=== PATIENT | female | born 1955 | race Caucasian/White ===

== ENCOUNTER 2020-02-27 15:21 | Emergency (ER) | payer BC, SELFPAY ==
[2020-02-27] MEDS ORDERED: Acetaminophen 500 MG TAB ONE (16:05)
--- NOTE | 2020-02-27 16:09 | CT ---
EXAM: CT face without contrast HISTORY: Trip and fall one hour ago landing on face with nasal pain COMPARISON: None TECHNIQUE: Multiple contiguous axial images were obtained and a CT of the face without contrast. Sagi ttal and coronal reformats were performed. FINDINGS: There are minimally displaced bilateral nasal bone fractures. No teeth remain in the maxill a. No other facial fractures are identified. Mild nasal soft tissue swelling is seen. The globes and retrobulbar soft tissues are unremarkable. The visualized paranasal sinuses are well aerated without evidence of opacification. The mastoid air cells are well aerated. Visualized intracranial structures are unremarkable. IMPRESSION: Minimally displaced nasal bone fractures.
--- NOTE | 2020-02-27 16:48 | CT ---
CT BRAIN WITHOUT CONTRAST: 02/27/20 HISTORY: Fall. Headache. FINDINGS: No evidence of acute infarct, hemorrhage, midline shift or abnormal extra-axial fluid collections are seen. The ventricular size is appropriate and the basilar cisterns are patent. The bony calvarium is intact. The visualized paranasal sinuses and mastoid air cells are well aerated. IMPRESSION: No CT evidence of acute intracranial process. POS: AH
== END 2020-02-27 16:28 | disposition home or self-care (01) ==
LOC: ERS 15:21
DX: S02.2XXA Fracture of nasal bones, initial encounter for closed fracture (principal); W01.0XXA Fall on same level from slipping, tripping and stumbling without subsequent striking against object, initial encounter; F17.210 Nicotine dependence, cigarettes, uncomplicated
CPT/HCPCS: 70450; 70486